=== PATIENT | female | born 1985 | race Caucasian/White ===

== ENCOUNTER 2023-12-16 16:06 | Emergency (ER) | payer MEDICAID ==
[~2023-12-16] VITALS: Ht 157.5 cm; Wt 90.7 kg
[2023-12-16 16:24] VITALS: BP 164/88; TEMP 98.1
[2023-12-16] MEDS ORDERED: IBUP-1955 PO (17:44)
[2023-12-16 17:50] VITALS: O2SAT 100
== END 2023-12-16 17:50 | disposition home or self-care (01) ==
LOC: ER 16:12
DX: S93.401A Sprain of unspecified ligament of right ankle, initial encounter (principal); X50.1XXA Overexertion from prolonged static or awkward postures, initial encounter; Y93.89 Activity, other specified; Y92.89 Other specified places as the place of occurrence of the external cause; Y99.8 Other external cause status
CPT/HCPCS: 73610-TC

== ENCOUNTER 2023-12-23 20:09 | Emergency (ER) | payer MEDICAID ==
[~2023-12-23] VITALS: Ht 152.4 cm; Wt 90.7 kg
[~2023-12-23 20:09] MED LIST: IBUP-1955 PO
[2023-12-23 20:49] VITALS: BP 118/70; TEMP 98.1; O2SAT 98
[2023-12-23] MEDS ORDERED: ACETAMINOPHEN ES 500 MG TABLET ONE (21:14)
[2023-12-23] MEDS: ACETAMINOPHEN ES 500 MG TABLET PO ONE (21:17)
[2023-12-23] MEDS: SILVER SULFADIAZINE CREAM 25 GM TUBE TP ONE (21:19)
[2023-12-23] MEDS ORDERED: ACET-2605 PO (21:24)
[2023-12-23] MEDS ORDERED: SILV20CR13 TP (21:24)
== END 2023-12-23 22:06 | disposition home or self-care (01) ==
LOC: ER 20:11
DX: T25.221A Burn of second degree of right foot, initial encounter (principal); T31.0 Burns involving less than 10% of body surface; Z60.2 Problems related to living alone; X12.XXXA Contact with other hot fluids, initial encounter; Y93.G3 Activity, cooking and baking; Y92.89 Other specified places as the place of occurrence of the external cause; Y99.8 Other external cause status